=== PATIENT | male | born 1970 | race Two or more races ===

== ENCOUNTER 2016-09-25 16:36 | Emergency (ER) | payer OTHER ==
[2015-11-04 11:24] VITALS: BP_SYST 147
[~2016-09-25] VITALS: Ht 170.2 cm; Wt 127.0 kg
[~2016-09-25 16:36] MED LIST: SILD100T PO; VALA500T5 PO
[2016-09-25 16:44] VITALS: BP_DIAS 140
--- NOTE | 2016-09-25 17:10 | PHYS DOC ---
General Chief Complaint: LACERATION/AVULSION Stated Complaint: LAC ON FINGER Time Seen by MD: 17:07 Source: patient Exam Limitations: no limitations Problems: History of Present Illness Initial Comments Pt is 46/M to ED c/o finger lac. Immed [employer] pt helping move, reached behind dryer and cut hand on metal piece. Td up to date, pain controlled, pt states he had difficulty stopping it bleeding. States it stopped bleeding only once he arrived here. No numbness/ tingling/weakness/radiating sx. Onset: just prior to arrival Severity: mild Pain/Injury Location: right 5th finger Method of Injury: incised Modifying Factors: worse with jarring, worse with movement, improves with rest Allergies: Coded Allergies: No Known Drug Allergies (Unverified , 03/20/15) Past Medical History Medical History: no pertinent history Surgical History: noncontributory Social History Smoker: non-smoker Alcohol: none Drugs: none Review of Systems Constitutional: denies chills, denies fever Respiratory: denies cough, denies shortness of breath Cardiovascular: denies chest pain, denies palpitations Gastrointestinal: denies nausea, denies vomiting Genitourinary: denies frequency, denies hematuria Musculoskeletal: see HPI Skin: see HPI Psychiatric/Neurological: see HPI Physical Exam General Appearance: no apparent distress, obese HEENT: normal ENT inspection Neck: non-tender, supple Cardiovascular/Respiratory: normal peripheral pulses, no respiratory distress Hand: laceration (lateral aspect proximal phalanx R 5th finger with 1/4" superficial clean flap type laceration no bleeding/FB) Neurologic/Tendon: normal sensation, normal motor functions, normal tendon functions, responds to pain, no evidence tendon injury Psychiatric: alert, oriented x 3 Skin: warm/dry (finger lac as above) Orders, Labs, Meds Medic applied layer of tissue adhesive for protective barrier, metal finger splint/chaya tape. NV intact after splint. Pt expressed agreement/ understanding with treatment plan. Departure Time of Disposition: 17:08 Disposition: 01 HOME, SELF-CARE Diagnosis: finger laceration Condition: GOOD Patient Instructions: Tissue Adhesive Wound Care, [id number] Additional Instructions: Keep wound dry for 48 hours. Keep covered with sterile dressing until healed. After 48 hours, wash twice daily with soap and water, blot dry. Change dressing each wash. Finger splint/chaya tape as needed for comfort. Monitor for s/s infection. Follow up with your doctor, return to ED as needed. GIA BARTON DO September 25, 2016 17:10
== END 2016-09-25 17:20 | disposition home or self-care (01) ==
LOC: ER 16:36
DX: S61.216A Laceration without foreign body of right little finger without damage to nail, initial encounter (principal); W45.8XXA Other foreign body or object entering through skin, initial encounter; Y93.89 Activity, other specified; Y99.8 Other external cause status; Y92.89 Other specified places as the place of occurrence of the external cause
CPT/HCPCS: 12001; 99283-25